=== PATIENT | female | born 1965 | race Caucasian/White ===

== ENCOUNTER 2022-09-23 15:04 | Outpatient (CLI) | payer OTHER ==
[~2022-09-23 15:04] MED LIST: ANTIVERT25 M1 PO; LIPOFLAVOVIT CA1 TAB PO; SYNTHROID112 MCG PO
== END 2022-09-23 15:20 | disposition home or self-care (01) ==
LOC: RAD 15:04
DX: M54.89 Other dorsalgia (principal); M41.25 Other idiopathic scoliosis, thoracolumbar region; M43.8X9 Other specified deforming dorsopathies, site unspecified; M47.24 Other spondylosis with radiculopathy, thoracic region; M47.25 Other spondylosis with radiculopathy, thoracolumbar region; M47.26 Other spondylosis with radiculopathy, lumbar region; M51.15 Intervertebral disc disorders with radiculopathy, thoracolumbar region; Q06.8 Other specified congenital malformations of spinal cord; H81.4 Vertigo of central origin; M85.80 Other specified disorders of bone density and structure, unspecified site